=== PATIENT | male | born 1955 | race Caucasian/White ===

== ENCOUNTER 2018-02-15 06:19 | Emergency (ER) | payer MEDICAID ==
[~2018-02-15] VITALS: Ht 167.6 cm; Wt 77.3 kg
[2018-02-15 06:23] VITALS: Ht 167.6 cm; Wt 77.3 kg
[2018-02-15 06:45] LABS: APPEARANCE HAZY (CLEAR); BILIRUBIN NEGATIVE (NEGATIVE); COLOR YELLOW (YELLOW); EPITHELIAL CELLS 0-5 /hpf (0-5); GLUCOSE 1000 mg/dL (NEGATIVE); KETONE LARGE mg/dL (NEGATIVE); NITRITE POSITIVE (NEGATIVE); PROTEIN 1+ mg/dL (NEGATIVE); UROBILINOGEN NORMAL (NORMAL)
[2018-02-15 06:46] LABS: AMORPHOUS SEDIMENT >1+ /lpf (NONE SEEN); BACTERIA MODERATE /hpf (NONE SEEN); MUCUS <1+ /lpf (NONE SEEN)
[2018-02-15 06:47] LABS: GRANULAR CAST 0-5 /lpf (NONE SEEN); HYALINE CAST 0-5 /lpf (NONE SEEN)
[2018-02-15 06:52] LABS: HEMATOCRIT 41.6 % (42.0-54.0); HEMOGLOBIN 14.8 g/dL (13.5-17.5); MCHC 35.6 g/dL (31.0-37.0); MCV 84.2 fL (80.0-100.0); MEAN PLATELET VOLUME 8.7 fL (7.4-10.4); PLATELET COUNT 347 10x3/uL (130-400); RBC 4.94 10x6/uL (4.20-6.10); RDW 12.6 % (11.5-14.5); WBC 31.9 10x3/uL (4.8-10.8)
[2018-02-15 07:15] LABS: ALBUMIN 3.2 g/dL (3.4-5.0); ALKALINE PHOSPHATASE 84 U/L (46-116); ALT (SGPT) 20 U/L (10-68); BILIRUBIN - TOTAL 0.45 mg/dL (0.2-1.3); CALC OSMOLALITY 271 mosm/kg (275-300); CALCIUM 9.1 mg/dL (8.5-10.1); CARBON DIOXIDE 19.1 mmol/L (21.0-32.0); CHLORIDE - SERUM 98 mmol/L (98-107); CREATININE - SERUM 0.8 mg/dL (0.6-1.3); GLUCOSE 194 mg/dL (74-106); LIPASE 98 U/L (73-393); POTASSIUM - SERUM 3.3 mmol/L (3.5-5.1); PROTEIN - SERUM 8.7 g/dL (6.4-8.2); SODIUM 133 mmol/L (136-145); TROPONIN-I < 0.017 ng/mL (0.000-0.060); UREA NITROGEN 14 mg/dL (7-18); eGFR NON AFRICAN AMERICAN > 90 mL/min (90-120)
[2018-02-15 07:25] LABS: LYMPHOCYTES 8 % (15-50); MONOCYTES 4 % (2-11); NEUTROPHILS 88 % (40-80)
[2018-02-15 07:26] LABS: PLATELET ESTIMATE NORMAL
[2018-02-15 14:21] VITALS: BP 133/86
[2018-02-18 10:04] LABS: CHLAMYDIA TRACHOMATIS, NAA Negative (Negative)
== END 2018-02-15 14:22 ==
LOC: D.ER 06:19
PROVIDERS: Family Medicine
DX: N39.0 Urinary tract infection, site not specified (principal); R10.9 Unspecified abdominal pain; K57.92 Diverticulitis of intestine, part unspecified, without perforation or abscess without bleeding; N45.1 Epididymitis; N50.812 Left testicular pain; D72.829 Elevated white blood cell count, unspecified; R22.9 Localized swelling, mass and lump, unspecified